=== PATIENT | female | born 1990 | race Caucasian/White ===

== ENCOUNTER 2021-08-14 01:43 | Emergency (ER) | payer OTHER ==
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
[2021-08-14 02:37] LABS: ANION GAP 20.8 mEq/L (7-13); CHLORIDE,CL 105 mmol/L (98-107); SODIUM,NA 143 mmol/L (136-145)
[2021-08-14 02:38] LABS: ACETAMINOPHEN 0 ug/mL (10-30 (Therapeutic))
== END 2021-08-14 02:30 | disposition home or self-care (01) ==
LOC: DL.ED 01:43
DX: T75.4XXA Electrocution, initial encounter (principal); F10.10 Alcohol abuse, uncomplicated; Y90.7 Blood alcohol level of 200-239 mg/100 ml
CPT/HCPCS: 36415; 80053; 80143; 80179; 80307; 83605; 85025; 93005; 99284-25

== ENCOUNTER 2024-02-23 15:38 | Emergency (ER) | payer BC | END 2024-02-23 16:09 | disposition home or self-care (01) | LOC: DL.ED 15:38 | DX: Z00.00 Encounter for general adult medical examination without abnormal findings (principal) | CPT/HCPCS: 99283 ==